=== PATIENT | male | born 1945 ===

== ENCOUNTER 2024-07-28 09:35 | Outpatient (CLI) | payer OTHER ==
[2024-07-28 10:35] LABS: PH,URINE 6.5 (5.0-8.0); URINE APPEARANCE Clear; URINE BILIRRUBIN Negative (NEGATIVE); URINE BLOOD Negative; URINE COLOR Yellow; URINE GLUCOSE Negative (NEGATIVE); URINE KETONE Negative (NEGATIVE); URINE LEUKOCYTE Negative; URINE NITRATE Negative; URINE PROTEIN Negative (NEGATIVE); URINE UROBILINOGEN 0.2 E.U./dl
[2024-07-28 10:40] LABS: URINE BACTERIA 56.2 uL (0.0-1933); URINE EPITHELIAL CELLS 12.1 uL (0.0-38.8)
[2024-07-28 10:41] LABS: COVID-19 AG NEGATIVE (NEGATIVE)
[2024-07-28 11:16] LABS: BASO % 0.8 % (0.1-1.2); EOS # 0.04 (0.04-0.54); EOS % 0.4 % (0.7-7.0); HEMATOCRIT 38.9 % (40.1-51.0); HEMOGLOBIN 12.6 g/dL (13.7-17.5); LYMPH # 1.71 (1.18-3.74); LYMPH % 17.2 % (19.3-53.1); MEAN CORPUSCULAR HEMOGLOBIN 31.2 pg (25.6-32.2); MONO # 0.81 (0.24-0.82); MONO % 8.1 % (4.7-12.5); NEUT # 7.26 (1.56-6.13); NEUT % 72.8 % (34.0-71.1); PLATELET COUNT 229 K/uL (163-369); RED BLOOD COUNT 4.04 M/uL (4.63-6.08); RED CELL DISTRIBUTION WIDTH 12.1 % (11.6-14.4)
[2024-07-28 11:23] LABS: INR 0.98; PARTIAL THROMBOPLASTIN TIME 24.8 SECONDS (22.0-34.0); PROTHROMBIN TIME 10.7 SECONDS (9.0-11.5)
[2024-07-28 11:55] LABS: ALBUMIN 3.8 gm/dL (3.4-5.0); BILIRUBIN TOTAL 0.36 mg/dL (0.3-1.2); CALCIUM 9.1 mg/dL (8.5-10.1); CHOL HDL RATIO 3.3 (0-5.0); CREATININE SERUM 0.84 mg/dL (0.70-1.30); GFR 88.14; POTASSIUM 4.51 mEq/L (3.5-5.1); TOTAL PROTEIN 6.8 gm/dL (6.4-8.2)
== END 2024-07-28 09:36 | disposition home or self-care (01) ==
LOC: RAD 09:35
PROVIDERS: ATTEND Orthopaedic Surgery
DX: D64.9 Anemia, unspecified (principal); R10.9 Unspecified abdominal pain; Z79.01 Long term (current) use of anticoagulants; N39.0 Urinary tract infection, site not specified; E78.5 Hyperlipidemia, unspecified; R05.9 Cough, unspecified; D68.9 Coagulation defect, unspecified; Z03.818 Encounter for observation for suspected exposure to other biological agents ruled out; Z20.828 Contact with and (suspected) exposure to other viral communicable diseases

== ENCOUNTER 2024-07-30 11:29 | Inpatient (IN) | payer OTHER ==
[~2024-07-30] VITALS: Ht 121.9 cm; Wt 0.5 kg
[~2024-07-30 11:29] MED LIST: AMLODIPINE-OLM1 EAC2; BUSPIRONE HCL5 MG; COZAAR100 MG PO; PROZAC40 MG PO; ROSUVASTATIN CAL5 MG; SIMVASTATIN80 MG; XELPROS2.5 ML; ZETIA10 MG PO
[2024-07-30 13:09] LABS: RH POSITIVE
[2024-08-05] MEDS ORDERED: CEFAZOLIN SODIUM 1,000 MG VIAL ONE (07:55)
[2024-08-05] MEDS ORDERED: TRANEXAMIC ACID 100MG/1ML (1000MG) AMPUL IV ONE (07:56)
[2024-08-05] MEDS ORDERED: BUSPIRONE HCL15 MG (08:19)
[2024-08-05] MEDS ORDERED: RIVASTIGMINE1 EAC2 (08:19)
[2024-08-05] MEDS ORDERED: LATANOPROST2.5 ML (08:19)
[2024-08-05] MEDS ORDERED: FLUOXETINE HCL40 MG (08:19)
[2024-08-05] MEDS ORDERED: LAMICTAL150 MG (08:19)
[2024-08-05] MEDS ORDERED: FLUOXETINE HCL20 MG (08:20)
[2024-08-05] MEDS ORDERED: OLANZAPINE20 MG (08:20)
[2024-08-05] MEDS ORDERED: MEMANTINE HCL E28 MG (08:20)
[2024-08-05] MEDS ORDERED: EZETIMIBE10 MG (08:21)
[2024-08-05] MEDS ORDERED: AMLODIPINE BESYL5 MG (08:21)
[2024-08-05] MEDS ORDERED: RIVASTIGMINE1 EAC1 (08:21)
[2024-08-05] MEDS ORDERED: SIMVASTATIN40 MG (08:22)
[2024-08-05] MEDS ORDERED: LOSARTAN POTAS100 MG (08:22)
[2024-08-05] MEDS ORDERED: LIDOCAINE HCL 1%/EPINEPHRINE 20ML VIAL IJ ONE (10:15)
[2024-08-05] MEDS ORDERED: KETOROLAC TROMETHAMINE 60 MG VIAL IM ONE (10:15)
[2024-08-05] MEDS ORDERED: BUPIVACAINE HCL/Mpf 0.5% 10ML VIAL ONE (10:15)
[2024-08-05] MEDS ORDERED: POVIDONE-IODINE 118 ML BOTT TOP ONE (10:15)
[2024-08-05] MEDS ORDERED: VANCOMYCIN HCL 1,000 MG VIAL ONE (10:16)
[2024-08-05] MEDS ORDERED: ONDANSETRON HCL 2 MG/ML VIAL IV PRN (11:45)
[2024-08-05] MEDS ORDERED: SODIUM CHLORIDE 0.45 % 1,000 ML IV SCH (11:45)
[2024-08-05] MEDS ORDERED: OxyCODONE HCL 5 MG TABLET (ROXICODONE) PO PRN (11:45)
[2024-08-05] MEDS ORDERED: MORPHINE SULFATE 4 MG/ML CARTRIDGE IV PRN (11:45)
[2024-08-05] MEDS ORDERED: ACETAMINOPHEN 500 MG GEL..CAP PO SCH (12:00)
[2024-08-05] MEDS ORDERED: MORPHINE SULFATE 2 MG/ML CARTRIDGE IV ONE (13:55)
[2024-08-05 14:25] VITALS: BP 153/71; O2SAT 92
[2024-08-05] MEDS ORDERED: ENALAPRILAT DIHYDRATE 1.25 MG/ML VIAL IV PRN (14:30)
[2024-08-05 16:00] VITALS: BP 144/73; O2SAT 98
[2024-08-05] MEDS ORDERED: GABAPENTIN 300 MG CAPSULE PO SCH (17:00)
[2024-08-05] MEDS ORDERED: CEFAZOLIN SODIUM 1,000 MG VIAL IV SCH (17:00)
[2024-08-06 01:31] VITALS: BP 112/62; O2SAT 100
[2024-08-06 07:36] LABS: BASO % 0.3 % (0.1-1.2); EOS # 0.07 (0.04-0.54); EOS % 0.7 % (0.7-7.0); HEMATOCRIT 31.1 % (40.1-51.0); HEMOGLOBIN 10.2 g/dL (13.7-17.5); LYMPH # 1.35 (1.18-3.74); LYMPH % 13.1 % (19.3-53.1); MEAN CORPUSCULAR HEMOGLOBIN 32.1 pg (25.6-32.2); MONO # 0.83 (0.24-0.82); MONO % 8.1 % (4.7-12.5); NEUT # 7.93 (1.56-6.13); NEUT % 77.1 % (34.0-71.1); PLATELET COUNT 183 K/uL (163-369); RED BLOOD COUNT 3.18 M/uL (4.63-6.08); RED CELL DISTRIBUTION WIDTH 12.1 % (11.6-14.4)
[2024-08-06 08:00] VITALS: BP 125/70; O2SAT 99
[2024-08-06] MEDS ORDERED: ROSUVASTATIN CALCIUM 10 MG TABLET PO SCH (09:00)
[2024-08-06] MEDS ORDERED: AMLODIPINE BESYLATE 5 MG TABLET PO SCH (09:00)
[2024-08-06] MEDS ORDERED: FLUOXETINE HCL 20 MG CAPSULE PO SCH (09:00)
[2024-08-06] MEDS ORDERED: BUSPIRONE HCL 5 MG TABLET PO SCH (09:00)
[2024-08-06] MEDS ORDERED: SENNOSIDES 1 TAB TABLET PO SCH (09:00)
[2024-08-06] MEDS ORDERED: LOSARTAN POTASSIUM 100 MG TABLET PO SCH (09:00)
[2024-08-06] MEDS ORDERED: APIXABAN 2.5 MG TABLET PO SCH (09:00)
[2024-08-06] MEDS ORDERED: CEFADROXIL500 MG PO (09:34)
[2024-08-06] MEDS ORDERED: ELIQUIS2.5 MG PO (09:34)
[2024-08-06] MEDS ORDERED: PERCOCET 5-3251 EACH PO (09:34)
[2024-08-07] MEDS ORDERED: IRON FUM,PS/FOLIC ACID/VITC/B3 1 CAP CAPSULE PO SCH (09:00)
[2024-08-07] MEDS ORDERED: MORPHINE SULFATE 4 MG/ML VIAL IV ONE (16:15)
== END 2024-08-06 17:44 | DRG 470 ==
LOC: SURH 08-05 06:15 → O/R 08-05 06:15 → SURH 08-05 10:15
PROVIDERS: ADMIT Orthopaedic Surgery; ATTEND Orthopaedic Surgery
PROC: 0MNN0ZZ Release Right Knee Bursa and Ligament, Open Approach (ICD-10-PCS; 2024-08-05)
PROC: 0QUD0JZ Supplement Right Patella with Synthetic Substitute, Open Approach (ICD-10-PCS; 2024-08-05)
PROC: 0SRC0JZ Replacement of Right Knee Joint with Synthetic Substitute, Open Approach (ICD-10-PCS; principal; 2024-08-05 10:15)
DX: M17.11 Unilateral primary osteoarthritis, right knee (principal); M22.11 Recurrent subluxation of patella, right knee; Z96.651 Presence of right artificial knee joint; I10 Essential (primary) hypertension